=== PATIENT | female | born 1995 | race American Indian/Alaskan Native ===

== ENCOUNTER 2018-07-15 16:20 | Emergency (ER) | payer SELFPAY ==
--- NOTE | 2018-07-15 20:20 | Emergency Department Report ---
ED Eye Problem HPI - General Chief complaint: Eye Problems Stated complaint: EYE PAIN Time Seen by Provider: 07/15/18 19:59 Source: fleet coordinator Mode of arrival: Ambulatory Limitations: Language Barrier - History of Present Illness Initial comments: 23-year-old female was a emergency department complaining of pain and swelling to the right lower eyelid which is been present for last 1 month has been no discharge or fever. She's tried no treatment modalities with the swelling has continued to linger and that resolved his reflux to the ER today. There is no blurry vision. No headache, no fever, chills, sweats. MD chief complaint: eye pain Location: right eye Place: home If Injury: none Eye Symptoms: pain Severity: mild If Pain, Quality: throbbing Consistency: constant Associated Symptoms: none Treatments Prior to Arrival: none - Related Data Patient Tetanus UTD: No Previous Rx's Medication Instructions Recorded Last Taken Type Doxycycline [Vibramycin CAP] 100 mg PO Q12HR #20 capsule 07/15/18 Unknown Rx Naphazoline HCl/Pheniramine 10 ml OP BID #1 drops 07/15/18 Unknown Rx [Naphcon-A Eye Drops] Allergies Allergy/AdvReac Type Severity Reaction Status Date / Time No Known Allergies Allergy Unverified 07/15/18 16:44 ED Review of Systems ROS: Stated complaint: EYE PAIN Other details as noted in HPI Constitutional: denies: chills, fever Eyes: eye pain. denies: eye discharge, vision change ENT: denies: ear pain, throat pain Respiratory: denies: cough, shortness of breath, wheezing Cardiovascular: denies: chest pain, palpitations Endocrine: no symptoms reported Gastrointestinal: denies: abdominal pain, nausea, diarrhea Genitourinary: denies: urgency, dysuria, discharge Musculoskeletal: denies: back pain, joint swelling, arthralgia Skin: denies: rash, lesions Neurological: denies: headache, weakness, paresthesias Psychiatric: denies: anxiety, depression Hematological/Lymphatic: denies: easy bleeding, easy bruising ED Past Medical Hx - Past Medical History Previous Medical History?: No - Surgical History Past Surgical History?: No - Social History Smoking Status: Never Smoker Substance Use Type: Alcohol - Medications Home Medications: Home Medications Medication Instructions Recorded Confirmed Last Taken Type Doxycycline [Vibramycin CAP] 100 mg PO Q12HR #20 capsule 07/15/18 Unknown Rx Naphazoline HCl/Pheniramine 10 ml OP BID #1 drops 07/15/18 Unknown Rx [Naphcon-A Eye Drops] ED Physical Exam - General Limitations: Language Barrier General appearance: alert, in no apparent distress - Head Head exam: Present: atraumatic, normocephalic - Eye Eye exam: Present: normal appearance, PERRL, EOMI. Absent: scleral icterus Pupils: Present: normal accommodation. Absent: irregular, miosis - Expanded Eye Exam Expanded Eyelids: Normal Inspection: Left, Stye: Right, Erythema: Right, Swelling: Right Pupils: Regular, Round: Bilateral Sclera/Conjunctival: Normal Inspection: Bilateral - ENT ENT exam: Present: normal exam, mucous membranes moist - Neck Neck exam: Present: normal inspection - Respiratory Respiratory exam: Present: normal lung sounds bilaterally. Absent: respiratory distress - Cardiovascular Cardiovascular Exam: Present: regular rate, normal rhythm. Absent: systolic murmur, diastolic murmur, rubs, gallop - GI/Abdominal GI/Abdominal exam: Present: soft, normal bowel sounds - Extremities Exam Extremities exam: Present: normal inspection - Back Exam Back exam: Present: normal inspection - Neurological Exam Neurological exam: Present: alert, oriented X3 - Psychiatric Psychiatric exam: Present: normal affect, normal mood - Skin Skin exam: Present: warm, dry, intact, normal color. Absent: rash Critical care attestation.: If time is entered above; I have spent that time in minutes in the direct care of this critically ill patient, excluding procedure time. ED Disposition Clinical Impression: [facility] Disposition: DC-01 TO HOME OR SELFCARE Is pt being admited?: No Does the pt Need Aspirin: No Condition: Stable Instructions: [facility] (ED) Prescriptions: Doxycycline [Vibramycin CAP] 100 mg PO Q12HR #20 capsule Naphazoline HCl/Pheniramine [Naphcon-A Eye Drops] 10 ml OP BID #1 drops Referrals: LACHO HORTA MD [Primary Care Provider] - 3-5 Days
[2018-07-15 20:39] VITALS: BP 127/83
== END 2018-07-15 20:57 | disposition home or self-care (01) ==
LOC: ED 16:20
DX: H00.12 Chalazion right lower eyelid (principal)
CPT/HCPCS: 99282